=== PATIENT | male | born 1945 | race Hispanic/Latino ===

== ENCOUNTER 2024-02-26 18:41 | Observation (INO) | payer MEDICARE ==
[~2024-02-26] VITALS: Ht 165.1 cm; Wt 72.6 kg
[2024-02-26 19:23] VITALS: TEMP 98.3
[2024-02-26 19:48] LABS: BASOPHILS # (AUTO) 0.1 (0.0-0.1); BASOPHILS % 0.6 % (0.0-1.0); EOSINOPHILS # (AUTO) 0.4 (0.0-0.4); EOSINOPHILS % 4.1 % (0.0-6.0); HEMATOCRIT 34.7 % (38.2-49.6); HEMOGLOBIN 11.8 g/dL (14.0-18.0); LYMPHOCYTES % 22.4 % (18.0-39.1); MEAN CORPUSCULAR HEMOGLOBIN 31.7 pg (28-32); MEAN CORPUSCULAR VOLUME 93.3 fL (81-99); MONOCYTES # (AUTO) 0.6 (0.2-0.8); MONOCYTES % 6.9 % (4.4-11.3); NEUTROPHILS # (AUTO) 5.7 (2.1-6.9); NEUTROPHILS % 65.7 % (38.7-80.0); PLATELET COUNT 188 x10e3/uL (140-360); RED BLOOD COUNT 3.72 x10e6/uL (4.3-5.7)
[2024-02-26 20:04] LABS: ALBUMIN 3.7 g/dL (3.5-5.0); ALBUMIN/GLOBULIN RATIO 1.2 (0.8-2.0); ANION GAP 13.7 mmol/L (8-16); BILIRUBIN,TOTAL 0.6 mg/dL (0.2-1.2); CALCIUM 8.7 mg/dL (8.4-10.2); CREATININE, SERUM 2.11 mg/dL (0.72-1.25); POTASSIUM 3.7 mmol/L (3.5-5.1); TOTAL PROTEIN 6.7 g/dL (6.5-8.1)
[2024-02-26] MEDS ORDERED: SODIUM CHLORIDE 0.9% 100 ML ONE (20:20)
[2024-02-26] MEDS ORDERED: IOPAMIDOL 370 MG/ML 100 ML INFUS..BTL INJ ONE (20:20)
[2024-02-26] MEDS: SODIUM CHLORIDE 0.9% 1000ML 1,000 ML IV ONE ×2 (20:38→23:13)
[2024-02-26] MEDS ORDERED: ONDANSETRON HCL INJ 2MG/ML 2ML 2 MG/ML VIAL IV PRN (21:30)
[2024-02-26 22:30] VITALS: PULSE 64; RESP 22
[2024-02-26] MEDS: TRAMADOL HCL 50 MG TAB PO PRN (23:13)
[2024-02-27] VITALS: BP 144/63; PULSE 58; RESP 18; TEMP 98.1; O2SAT 100
[2024-02-27] MEDS ORDERED: MAGNESIUM/ALUMINUM/SIMETHICONE 30 ML UDC PO PRN (02:45)
[2024-02-27] MEDS ORDERED: DOCUSATE SODIUM 100 MG CAP PO PRN (02:45)
[2024-02-27] MEDS ORDERED: MELATONIN 3 MG TAB PO PRN (02:45)
[2024-02-27] MEDS ORDERED: GUAIFENESIN/DEXTROMETHORPHAN LIQD 5 ML UDC PO PRN (02:45)
[2024-02-27] MEDS ORDERED: ACETAMINOPHEN 325 MG TAB PO PRN (02:45)
[2024-02-27] MEDS ORDERED: DEXTROSE 50% SYRINGE 50 ML IV PRN (02:45)
[2024-02-27] MEDS ORDERED: FLOMAX0.4 MG PO (03:49)
[2024-02-27] MEDS ORDERED: CILOSTAZOL50 MG PO (03:49)
[2024-02-27] MEDS ORDERED: METFORMIN HCL500 M1 PO (03:49)
[2024-02-27] MEDS ORDERED: ASPIRIN81 MG PO (03:49)
[2024-02-27] MEDS ORDERED: AMLODIPINE BESYL5 MG PO (03:49)
[2024-02-27] MEDS ORDERED: LISINOPRIL-HCT1 EACH PO (03:49)
[2024-02-27] MEDS ORDERED: ATORVASTATIN CA20 MG PO (03:49)
[2024-02-27 04:00] VITALS: BP 128/67; PULSE 58; RESP 18; TEMP 97.7; O2SAT 100
[2024-02-27] MEDS: SODIUM CHLORIDE 0.9% 1000ML 1,000 ML IV SCH (04:27)
[2024-02-27 06:44] LABS: BASOPHILS % 0.6 % (0.0-1.0); EOSINOPHILS # (AUTO) 0.4 (0.0-0.4); EOSINOPHILS % 6.2 % (0.0-6.0); HEMATOCRIT 33.4 % (38.2-49.6); HEMOGLOBIN 11.1 g/dL (14.0-18.0); LYMPHOCYTES % 30.3 % (18.0-39.1); MEAN CORPUSCULAR HEMOGLOBIN 31.3 pg (28-32); MEAN CORPUSCULAR HGB CONC 33.2 g/dL (31-35); MEAN CORPUSCULAR VOLUME 94.1 fL (81-99); MONOCYTES # (AUTO) 0.7 (0.2-0.8); NEUTROPHILS # (AUTO) 3.5 (2.1-6.9); NEUTROPHILS % 52.7 % (38.7-80.0); PLATELET COUNT 182 x10e3/uL (140-360); RED BLOOD COUNT 3.55 x10e6/uL (4.3-5.7); RED CELL DISTRIBUTION WIDTH 12.4 % (11.7-14.4); WHITE BLOOD COUNT 6.61 x10e3/uL (4.8-10.8)
[2024-02-27 07:01] LABS: ANION GAP 12.5 mmol/L (8-16); CALCIUM 8.2 mg/dL (8.4-10.2); CREATININE, SERUM 1.32 mg/dL (0.72-1.25); POTASSIUM 3.5 mmol/L (3.5-5.1)
[2024-02-27 07:05] LABS: CHOL/HDL RATIO 3.6 (3.9-4.7)
[2024-02-27] MEDS: INSULIN REGULAR, HUMAN 100 UNIT/1 ML SQ SCH (07:30)
[2024-02-27 08:44] VITALS: BP 171/64; PULSE 57; RESP 17; TEMP 97.5; O2SAT 100
[2024-02-27] MEDS: MULTIVITAMINS/MINERALS TAB PO SCH (09:08)
[2024-02-27] MEDS: HYDRALAZINE HCL 20 MG/ML VIAL IV PRN (09:09)
[2024-02-27 10:53] VITALS: BP 171/64; PULSE 57; RESP 17; TEMP 97.5; O2SAT 100
[2024-02-27 12:38] VITALS: BP 168/81; PULSE 67; RESP 18; TEMP 97.8; O2SAT 100
[2024-02-27] MEDS ORDERED: PLAVIX75 MG PO (12:46)
== END 2024-02-27 13:11 | disposition home or self-care (01) ==
LOC: ER 18:50 → ERHOLD 21:29 → MED/SURG3 23:35
PROVIDERS: ADMIT Internal Medicine Critical Care Medicine; ATTEND Internal Medicine Critical Care Medicine
DX: R07.89 Other chest pain (principal); M54.2 Cervicalgia; M54.89 Other dorsalgia; E86.0 Dehydration; N17.9 Acute kidney failure, unspecified; M47.817 Spondylosis without myelopathy or radiculopathy, lumbosacral region; I66.8 Occlusion and stenosis of other cerebral arteries; I65.01 Occlusion and stenosis of right vertebral artery; I10 Essential (primary) hypertension; E78.5 Hyperlipidemia, unspecified; E11.51 Type 2 diabetes mellitus with diabetic peripheral angiopathy without gangrene; Z79.84 Long term (current) use of oral hypoglycemic drugs; N40.0 Benign prostatic hyperplasia without lower urinary tract symptoms; F17.200 Nicotine dependence, unspecified, uncomplicated; X50.0XXA Overexertion from strenuous movement or load, initial encounter; X50.3XXA Overexertion from repetitive movements, initial encounter; Z79.899 Other long term (current) drug therapy; Z79.82 Long term (current) use of aspirin; Z79.02 Long term (current) use of antithrombotics/antiplatelets
CPT/HCPCS: 36415 ×2; 70496; 70498; 71275; 80048; 80053; 80061; 82550; 82948; 84484; 85025 ×2; 93005; 99284; G0378 ×2; J0360; J7030 ×2; J7050; Q9967